=== PATIENT | female | born 2000 | race Two or more races ===

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

== ENCOUNTER 2018-01-23 03:43 | Emergency (ER) | END 2018-01-23 05:56 | disposition home or self-care (01) ==

== ENCOUNTER 2018-02-23 07:26 | Emergency (ER) | END 2018-02-23 11:31 | disposition home or self-care (01) ==